=== PATIENT | female | born 1955 | race Caucasian/White ===

== ENCOUNTER 2017-03-27 11:26 | Emergency (ER) | payer OTHER ==
[~2017-03-27] VITALS: Ht 170.2 cm; Wt 63.0 kg
[2017-03-27] MEDS ORDERED: LORazepam 2 MG/ML, 1ML IVPush ONE (12:30)
[2017-03-27] MEDS ORDERED: ASPIRIN 81 MG TABLET CHEW PO ONE (12:30)
[2017-03-27] MEDS ORDERED: SODIUM CHLORIDE FLUSH 10ML SYR IVF ONE (12:30)
[2017-03-27] MEDS ORDERED: SODIUM CHLORIDE 0.9% 1,000ML IVBOLUS ONE (12:30)
[2017-03-27] MEDS ORDERED: LORazepam 2 MG/ML, 1ML ONE (12:31)
[2017-03-27 12:54] LABS: HEMATOCRIT 40.6 % (34.6-47.8); HEMOGLOBIN 13.8 g/dL (11.7-16.4); WHITE BLOOD COUNT 7.4 x10^3/uL (3.4-10)
[2017-03-27 13:07] LABS: BLOOD UREA NITROGEN 13 mg/dL (7-18)
[2017-03-27 13:08] LABS: ASPARTATE AMINO TRANSFERASE 28 U/L (15-37)
[2017-03-27 13:12] LABS: IS PT STATUS REG ER OR PRE ER? YES
[2017-03-27 14:29] VITALS: BP 115/52
[2017-03-27] MEDS ORDERED: ALPR1TAB2 PO (14:44)
[2017-03-27] MEDS ORDERED: PROG100C16 PO (14:44)
[2017-03-27] MEDS ORDERED: THYR60TA PO (14:44)
[2017-03-27] MEDS ORDERED: ALPR0.5T6 PO (14:44)
[2017-03-27] MEDS ORDERED: ESCI20TA PO (14:44)
== END 2017-03-27 15:01 | disposition home or self-care (01) ==
LOC: ED 14:55
DX: R07.89 Other chest pain (principal); F41.1 Generalized anxiety disorder
CPT/HCPCS: 36415; 71010; 80053; 83880; 84484; 85025; 85379; 85610; 85730; 93005; 96361; 96374; 99285; J2060; J7030